=== PATIENT | female | born 1970 | race Caucasian/White ===

== ENCOUNTER 2018-02-14 07:27 | Outpatient (CLI) | payer OTHER | END 2018-02-14 07:39 | disposition home or self-care (01) | LOC: MAMO-SONO 07:27 | DX: Z12.31 Encounter for screening mammogram for malignant neoplasm of breast (principal); N60.11 Diffuse cystic mastopathy of right breast; N60.12 Diffuse cystic mastopathy of left breast; N60.19 Diffuse cystic mastopathy of unspecified breast ==

== ENCOUNTER 2018-07-18 16:24 | Outpatient (CLI) | payer OTHER | END 2018-07-18 16:34 | disposition home or self-care (01) | LOC: LAB 16:24 | DX: Z78.0 Asymptomatic menopausal state (principal) ==

== ENCOUNTER 2019-02-11 07:17 | Outpatient (CLI) | payer OTHER | END 2019-02-11 07:25 | disposition home or self-care (01) | LOC: LAB 07:17 | DX: E88.81 Metabolic syndrome and other insulin resistance (principal); E66.09 Other obesity due to excess calories; R53.83 Other fatigue; N91.4 Secondary oligomenorrhea ==

== ENCOUNTER 2019-12-04 09:35 | Outpatient (CLI) | payer OTHER | END 2019-12-04 09:48 | disposition home or self-care (01) | LOC: LAB 09:35 | DX: Z01.419 Encounter for gynecological examination (general) (routine) without abnormal findings (principal) ==

== ENCOUNTER 2019-12-04 14:13 | Outpatient (CLI) | payer OTHER | END 2019-12-04 14:15 | disposition home or self-care (01) | LOC: MAMO-SONO 14:13 | DX: Z12.31 Encounter for screening mammogram for malignant neoplasm of breast (principal) ==

== ENCOUNTER 2020-03-26 06:23 | Outpatient (CLI) | payer OTHER | END 2020-03-26 06:40 | disposition home or self-care (01) | LOC: LAB 06:23 | DX: R53.83 Other fatigue (principal); Z00.00 Encounter for general adult medical examination without abnormal findings; E55.9 Vitamin D deficiency, unspecified; N95.1 Menopausal and female climacteric states ==

== ENCOUNTER 2021-02-07 08:16 | Outpatient (CLI) | payer OTHER | END 2021-02-07 08:24 | disposition home or self-care (01) | LOC: MAMO-SONO 08:16 | DX: R92.2 Inconclusive mammogram (principal); Z01.419 Encounter for gynecological examination (general) (routine) without abnormal findings; Z12.39 Encounter for other screening for malignant neoplasm of breast ==

== ENCOUNTER 2022-02-09 09:10 | Outpatient (CLI) | payer OTHER | END 2022-02-09 09:15 | disposition home or self-care (01) | LOC: MAMO-SONO 09:10 | DX: Z12.31 Encounter for screening mammogram for malignant neoplasm of breast (principal); R92.2 Inconclusive mammogram ==